=== PATIENT | female | born 1980 | race Asian ===

== ENCOUNTER 2018-06-25 09:16 | Inpatient (IN) | payer OTHER ==
[~2018-06-25] VITALS: Ht 157.5 cm; Wt 162.0 kg
[2018-06-25] VITALS (17 sets, daily range): BP systolic 91–118; BP diastolic 41–89; PULSE 52–111; TEMP 97.7–98.2
[2018-06-25] MEDS ORDERED: VITAMIN D 50,1.25 MG PO (10:49)
[2018-06-25 11:31] LABS: BASO % 0.4 % (0.0-2.0); EOS # 0.2 (0.0-0.7); EOS % 1.9 % (0-4.0); GRAN # 4.5 (1.4-6.5); GRAN % 57.8 % (42.2-75.2); HEMOGLOBIN 10.9 g/dl (12.5-16.0); LYMPH # 2.7 (1.2-3.4); LYMPH % 34.7 % (20.0-51.0); MEAN CELL VOLUME 93 fl (80.0-100.0); MEAN CORPUSCULAR HEMOGLOBIN 34 pg (27.0-31.0); MEAN CORPUSCULAR HGB CONC 36 g/dl (33.0-37.0); MONO # 0.4 (0.1-0.6); MONO % 4.7 % (1.7-9.3); PLATELET COUNT 149 K/mm3 (130-400); RED BLOOD COUNT 3.23 M/mm3 (4.10-5.30); REDCELL DISTRIBUTION WIDTH-CV 12.6 % (11.5-14.5)
[2018-06-25 11:37] LABS: HEMATOCRIT 30.1 % (37.0-47.0)
[2018-06-25] MEDS ORDERED: PERCOCET 325 MG1 TA2 PO (11:55)
[2018-06-25] MEDS ORDERED: MOTRIN 800800 MG/TAB PO (11:55)
[2018-06-26 04:15] VITALS: BP 93/58; PULSE 65; TEMP 98.3
[2018-06-26 08:21] VITALS: BP 102/61; PULSE 63; TEMP 97.8
[2018-06-26 15:57] VITALS: BP 96/86; PULSE 63; TEMP 98.2
[2018-06-26 19:10] VITALS: BP 102/59; PULSE 60; TEMP 97.4
[2018-06-27 07:24] VITALS: BP 101/57; PULSE 79; TEMP 98.2
== END 2018-06-27 12:30 | disposition home or self-care (01) | DRG 788 ==
LOC: LDR 09:16 → OB 10:21
PROVIDERS: Obstetrics & Gynecology
PROC: 10D00Z1 Extraction of Products of Conception, Low, Open Approach (ICD-10-PCS; principal; 2018-06-25)
DX: O34.211 Maternal care for low transverse scar from previous cesarean delivery (principal); N85.8 Other specified noninflammatory disorders of uterus; Z3A.39 39 weeks gestation of pregnancy; Z37.0 Single live birth; Z28.21 Immunization not carried out because of patient refusal; O99.844 Bariatric surgery status complicating childbirth; O99.02 Anemia complicating childbirth; D64.9 Anemia, unspecified; J45.909 Unspecified asthma, uncomplicated
CPT/HCPCS: J0690; J1885; J2370; J2405; J2590; J7120